=== PATIENT | male | born 1955 | race Caucasian/White ===

== ENCOUNTER 2017-01-18 13:49 | Emergency (ER) | payer MEDICAID ==
[~2017-01-18] VITALS: Ht 157.5 cm; Wt 76.5 kg
[2017-01-18 14:15] VITALS: Ht 157.5 cm; Wt 76.5 kg
[2017-01-18] MEDS ORDERED: HC30CR25 TOP (17:42)
--- NOTE | 2017-01-18 17:59 | ERA ---
ER Documentation Chief Complaint Date/Time DATE: 01/18/17 TIME: 17:48 Chief Complaint DIZZINESS IN THE MORNING, NOT CURRENTLY DIZZY HPI 61-year-old male presenting with a chief complaint of dizziness 1 month. She states she has had similar symptoms in the past that spontaneously resolved. Is not on any thing for the symptoms at this point. States that is worse when he is at work and looking up as well as getting out of bed in the morning. Denies any chronic medical issues or medications he takes on a daily basis. Denies shortness of breath, chest pain, headache, polyuria, polydipsia. Patient has no other complaints and describes no other associated manifestations. I reviewed nursing notes and they are consistent with history given. ROS All systems reviewed and are negative except as per history of present illness. Medications Home Meds Active Scripts Hydrocortisone* Topical (Hydrocortisone* Topical) 2.5%-28.3 Gm Cream..g., 1 APPLIC TOP BID, #1 TUB Prov:ANGELINA TOMAS PA-C 01/18/17 Allergies Allergies: Coded Allergies: No Known Allergy (Unverified , 01/18/17) PMhx/Soc Hx Miscellaneous Medical Probl: Yes (DM) Physical Exam Vitals Vital Signs Date Time Temp Pulse Resp B/P Pulse Ox O2 Delivery O2 Flow Rate FiO2 01/18/17 14:15 98.9 94 18 124/83 96 Physical Exam Const: Overweight 61-year-old male in no acute distress. Head: Atraumatic Eyes: Jeny. PERRLA, EOMI bilaterally. Normal Conjunctiva ENT: Negative Marta's/Pao-Hallpike maneuvers. Normal External Ears, Nose and Mouth. Neck: Full range of motion..~ No meningismus. Resp: Clear to auscultation bilaterally Cardio: Regular rate and rhythm, no murmurs. Radial pulses 2+ bilaterally. Posterior tibial pulses 2+ bilaterally. Cap refill less than 2 seconds. Abd: Soft, non tender, non distended. Normal bowel sounds Skin: No petechiae or rashes Back: No midline or flank tenderness Ext: No cyanosis, or edema Neur: Awake and alert Psych: Normal Mood and Affect Procedures/MDM 61-year-old female with no significant past medical history presents with a chief complaint of dizziness. Symptoms have happened before and it resolved spontaneously. Dizziness is worse when waking up in the morning and when looking up. Patient had an unremarkable Pao-Hallpike/Marta's maneuvers. At this time a very little suspicion for intracranial pathology, serious bacterial infection, neurovascular compromise. Patient has no changes in hearing. Low suspicion for space-occupying lesion. At this time most likely diagnosis is dizziness of unknown cause. Blood pressure and orthostatic blood pressures unremarkable. Patient has been recommended to follow-up with PCP. A list of clinics has been handed to the patient. I have spoke with the patient regarding their condition and future management. They have verbally responded that they understand their status and treatment plan. The patients vitals are stable, and their current condition is appropriate for discharge. The patient will be given discharge instructions with return precautions. Departure Diagnosis: Primary Impression: Dizziness Condition: Stable Patient Instructions: Dizziness, Unk Cause Referrals: [facility] YOU HAVE RECEIVED A MEDICAL SCREENING EXAM AND THE RESULTS INDICATE THAT YOU DO NOT HAVE A CONDITION THAT REQUIRES URGENT TREATMENT IN THE EMERGENCY DEPARTMENT. FURTHER EVALUATION AND TREATMENT OF YOUR CONDITION CAN WAIT UNTIL YOU ARE SEEN IN YOUR DOCTORS OFFICE WITHIN THE NEXT 1-2 DAYS. IT IS YOUR RESPONSIBILITY TO MAKE AN APPOINTMENT FOR [facility]. IF YOU HAVE A PRIMARY DOCTOR --you should call your primary doctor and schedule an appointment IF YOU DO NOT HAVE A PRIMARY DOCTOR YOU CAN CALL OUR PHYSICIAN REFERRAL HOTLINE AT IF YOU CAN NOT AFFORD TO SEE A PHYSICIAN YOU CAN CHOSE FROM THE FOLLOWING [facility] [address] [facility] [facility]. [facility] [address] [facility] [facility] [address] [facility] [facility] [address] [facility] [facility] [address] [facility] [facility] [facility] ([facility]) Usted se arshad hecho un examen mdico de control que le indica que no est en jamil condicin que requiera tratamiento urgente en el Departamento de Emergencia. Un estudio ms profundo y el tratamiento de kaplan condicin pueden esperar sin ningn riesgo hasta que usted sea atendida/o en el consultorio de kaplan mdico o jamil cl temi. Es responsabilidad suya arreglar jamil heidy para el seguimiento del torsten. MANEJO DE CONDICIONES NO URGENTES EN EL FUTURO 1) Si usted tiene un mdico de atencin primaria: Usted debera llamar a kaplan mdico de atencin primaria antes de venir al departamento de emergencia. Despus de las horas de consultorio, kaplan doctor o kaplan asociado/a est disponible por telfono. El mdico o enfermero de ct en el servicio telefnico puede asesorarle por sathish medio para atender el problema, o torsten contrario se puede programar jamil heidy. 2) Si usted no tiene un mdico de atencin primaria: Llame al mdico o clnica de referencia que aparece abajo marco antonio las horas de consultorio para hacer jamil heidy para que le vean. CLINICAS: [facility] [phone] [address] [facility] [facility] [phone] [address] [facility]. [facility] [phone] [address] [facility]. [place] [id number] [phone] [facility]. [place] [phone] [facility] [phone] [address] Additional Instructions: Follow up with your PCP within the next 1-3 days for a more thorough evaluation and a possible referral to a specialist. Return the the emergency department immediately if symptoms worsen or change. If you have any questions regarding medications, ask your pharmacist or us before you leave. If any adverse reactions occur while taking your medications, discontinue the treatment and return to the emergency department immediately. Take your medications as directed, and complete the entire course of treatment. ANGELINA TOMAS PA-C Jan 18, 2017 17:58
== END 2017-01-18 19:13 | disposition home or self-care (01) ==
LOC: FTE 13:49
DX: R42 Dizziness and giddiness (principal); E11.9 Type 2 diabetes mellitus without complications
CPT/HCPCS: 99283

== ENCOUNTER 2017-02-04 22:53 | Emergency (ER) | payer MEDICAID, OTHER ==
[~2017-02-04] VITALS: Ht 157.5 cm; Wt 76.5 kg
[~2017-02-04 22:53] MED LIST: HC30CR25 TOP
[2017-02-04 22:57] VITALS: Ht 157.5 cm; Wt 76.5 kg
[2017-02-05] MEDS ORDERED: NPH10OT RIGHT EAR (00:50)
--- NOTE | 2017-02-05 00:50 | ERD ---
ER Documentation Chief Complaint Date/Time DATE: 02/05/17 Chief Complaint Q-tip stuck in right ear while cleaning HPI The patient is a 61-year-old male who presents to the emergency department with complaint of foreign body to the right ear. The patient reports that he was cleaning his right ear with a q-tip, when the stick broke off inside his ear. He tried to retrieve it himself, but was unable to, and ended up causing an abrasion to the inner ear instead. He presents requesting for foreign body removal. Denies any otorrhea or bloody discharge from the ear. Denies any change in hearing. Denies fevers, sweats, chills, rhinorrhea, nasal congestion, sore throat, or other symptoms. No other complaints at this time. ROS All systems reviewed and are negative except as per history of present illness. Medications Home Meds Active Scripts Neomycin/Polymyxin/Hydrocort* (Cortisporin* Otic) 10 Ml Susp, 4 DROP RIGHT EAR QID for 7 Days, EA Prov:DEWAYNE MANCINI PA-C 02/05/17 Hydrocortisone* Topical (Hydrocortisone* Topical) 2.5%-28.3 Gm Cream..g., 1 APPLIC TOP BID, #1 TUB Prov:ANGELINA TOMAS PA-C 01/18/17 Allergies Allergies: Coded Allergies: No Known Allergy (Unverified , 01/18/17) PMhx/Soc Hx Miscellaneous Medical Probl: Yes (DM) Hx Alcohol Use: No Hx Substance Use: No Hx Tobacco Use: No Smoking Status: Never smoker Physical Exam Vitals Vital Signs Date Time Temp Pulse Resp B/P Pulse Ox O2 Delivery O2 Flow Rate FiO2 02/04/17 22:57 98.0 77 18 129/81 96 Physical Exam Const: Well-developed, well-nourished, in no acute distress. Head: Atraumatic Eyes: Normal Conjunctiva ENT: Normal External Ears, Nose and Mouth. Foreign body/q-tip to right ear canal. Few abrasions to the right external auditory canal, non-bleeding. Tympanic membrane partially visualized, and intact. Left tympanic membrane is clear with no erythema, effusion or dulling of the light reflex. Hearing grossly intact. No otorrhea or bloody discharge. No mastoid tenderness. Neck: Supple. Resp: Normal respiratory effort. Cardio: Normal peripheral perfusion. Skin: No petechiae or rashes Ext: No clubbing, cyanosis, or edema. Moving all extremities. Neur: Awake and alert Psych: Cooperative. Appropriate. Procedures/MDM PROCEDURE NOTE: Foreign Body Removal PROCEDURE: Removal of foreign body from right ear. DESCRIPTION OF REPAIR: Foreign body visualized in right ear canal, with few abrasions to the canal. Foreign body was removed using alligator forceps, with full extraction of the foreign body. Re-examination of the ear following the procedure reveals no evidence of any retained foreign bodies and no tympanic membrane perforation. The patient tolerated the procedure well without complications. Standard post-procedure care was explained and return precautions were given. MEDICAL DECISION MAKING: This is a 61-year-old male who presents to the emergency department for a foreign body to the right ear. Otoscopic inspection revealed a foreign body/q-tip, that was removed successfully. The patient's external ear canal now has no evidence of retained foreign body or drainage. However, several small abrasions noted, from when the patient attempted to remove the foreign body himself. The patient tolerated the procedure well. The patient continues to be stable with no current evidence of infection or complication. At this time, I believe the patient is suitable for outpatient management, and he will be discharged home with prescription for Cortisporin otic as prophylaxis and strict return precautions for signs of deteriorating or worsening condition. I recommend that they follow up with their primary care provider in 2-3 days for reevaluation and further management, or return to the ER sooner for any new or worsening symptoms. Further, I strongly recommended against any further foreign body insertion into the ear, and any further q-tip use. I shared my medical decision making and plan with the patient at length and in great detail, and he verbally understands and agrees with the plan for further observation and care as an outpatient. At the time of discharge all questions were answered. Departure Diagnosis: Primary Impression: Foreign body in right ear Encounter type: initial encounter Qualified Code: T16.1XXA - Foreign body of right ear, initial encounter Condition: Stable Patient Instructions: Foreign Body, Ear Canal (Removed) Additional Instructions: Call your primary care doctor TOMORROW for an appointment during the next 2-3 days.See the doctor sooner or return here if your condition worsens before your appointment time. PLEASE STOP PUTTING FOREIGN BODIES IN YOUR EARS! DEWAYNE MANCINI PA-C Feb 05, 2017 00:50
== END 2017-02-05 01:36 | disposition home or self-care (01) ==
LOC: FTE 22:53
DX: T16.1XXA Foreign body in right ear, initial encounter (principal); S00.411A Abrasion of right ear, initial encounter; E11.9 Type 2 diabetes mellitus without complications; X58.XXXA Exposure to other specified factors, initial encounter; Y92.9 Unspecified place or not applicable
CPT/HCPCS: 69200; Z7502

== ENCOUNTER 2017-10-13 09:52 | Day surgery (SDC) | END 2017-10-13 17:30 | disposition home or self-care (01) ==